=== PATIENT | female | born 2005 | race Hispanic/Latino ===

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

== ENCOUNTER 2023-05-12 13:08 | Emergency (ER) | payer MEDICAID ==
[~2023-05-12] VITALS: Ht 160 cm; Wt 49.9 kg
[~2023-05-12 13:08] MED LIST: CEPH500B PO
[2023-05-12 14:19] LABS: APPEARANCE,URINE CLOUDY (CLEAR); BILIRUBIN,URINE NEGATIVE (NEGATIVE); COLOR,URINE YELLOW (YELLOW); GLUCOSE, URINE (UA) NEGATIVE (NEGATIVE); KETONES,URINE NEGATIVE (NEGATIVE); LEUKOCYTE ESTERASE ,URINE 500 Leu/uL (NEGATIVE); NITRATE,URINE NEGATIVE (NEGATIVE); OCCULT BLOOD,URINE NEGATIVE (NEGATIVE); PROTEIN,URINE 20 mg/dL (NEGATIVE); UROBILINOGEN,URINE 0.2 mg/dL (0.2-1.0)
[2023-05-12 14:20] LABS: ADD UA MICROSCOPIC YES
[2023-05-12 14:24] LABS: BACTERIA,URINE FEW /HPF (None Seen); MUCUS,URINE FEW LPF (None Seen); SQUAMOUS EPITHELIAL CELL,UR MOD /HPF (0-2); WBC,URINE TNTC /HPF (0-1)
[2023-05-12] MEDS ORDERED: CEFTRIAXONE 500MG VIAL IM SCH (15:00)
[2023-05-12] MEDS ORDERED: AZITHROMYCIN 250 MG TABLET PO ONE (15:00)
[2023-05-12 15:03] VITALS: BP 127/64; PULSE 87; RESP 18; O2SAT 98
== END 2023-05-12 15:12 | disposition home or self-care (01) ==
LOC: EDH 13:08
DX: N39.0 Urinary tract infection, site not specified (principal); N89.8 Other specified noninflammatory disorders of vagina
CPT/HCPCS: 99283; 87088; 81001; 81025; 96372; J0696